=== PATIENT | male | born 1960 | race Two or more races ===

== ENCOUNTER 2025-03-04 05:03 | Emergency (ER) | payer OTHER, SELFPAY ==
--- NOTE | ~2025-03-04 | CT_ITS ---
CLINICAL HISTORY: Left flank pain CT abdomen and pelvis without contrast Comparison: None provided Findings: No consolidation or effusion. There is cholelithiasis. Small calculi are seen within the cystic duct. There is no evidence of cholecystitis. The liver is otherwise unremarkable. There are bilateral perinephric inflammatory changes of indeterminate age. There is a tiny nonobstructing calculus in the midpole of the right kidney and a small cyst is seen in the midpole as well. There is a small nonobstructing calculus in the lower pole of the left kidney. There is mild left hydroureteronephrosis with periureteral inflammatory changes. A 3.5 mm obstructing calculus is seen in the distal left ureter. The rest of the solid organs are unremarkable. No bowel obstruction, pneumoperitoneum, or pneumatosis. There is a small left inguinal hernia containing fat only. No acute fracture. IMPRESSION: 1. Nephrolithiasis with left-sided obstructive uropathy. Obstructing for the 3.5 mm calculus in the distal left ureter. 2. Cholelithiasis with small calculi seen in the cystic duct. 3. Small left inguinal hernia containing fat only. This document has been electronically signed by: Keshav Jensen MD on 03/04/2025 06:56:31
[2025-03-04 05:06] VITALS: BP 154/76; PULSE 65; RESP 20; TEMP 36.6; O2SAT 99; BMI 31.9
[2025-03-04 05:35] LABS: MANUAL DIFF FLAG NO
[2025-03-04 05:38] LABS: Hematocrit 41.8 % (42.0-52.0); Hemoglobin 14.4 g/dl (14.0-18.0); Imm Gran Abs Auto 0.03 X10*3/uL (0.00-0.03); Imm Gran Pct Auto 0.4 % (0.0-0.4); Lymphocytes Absolute Auto 2.0 X10*3/uL (1.2-4.9); Mean Corpuscular HGB Conc 34.4 g/dl (31.0-36.0); Mean Corpuscular Hemoglobin 29.4 pg (27.0-33.0); Mean Corpuscular Volume 85.3 fL (80.0-98.0); NRBC Abs Auto 0.000 X10*3/uL (0.0-0.012); NRBC Pct Auto 0.0 /100WBC (0.0-0.2); Platelet Count 119 X10*3/uL (160-400); Red Blood Count 4.90 X10*6/uL (4.60-5.80); White Blood Count 7.5 X10*3/uL (4.8-10.8)
--- NOTE | 2025-03-04 05:39 | ED_ITS ---
HPI - General Adult General Chief complaint: Back Pain/Injury Stated complaint: severe back pain Time Seen by Provider: 03/04/25 05:39 History of Present Illness ED Provider: Sudarshan CASE narrative: The patient is a 64-year-old male who says that he was awoken by pain in his left flank at around 03:00 this morning. He has been asleep. The pain was very uncomfortable and made him feel very restless so that he walked around a lot. He has never had pain like this before. He has no history of kidney stones. He has been feeling fine yesterday. No fever, sweats, chills. No nausea or vomiting. No urinary symptoms. No diarrhea. No injury. Related Data Previous Rx's ?Medication ?Instructions ?Recorded ibuprofen 400 mg tablet 400 mg PO Q6H PRN pain #14 t abs 03/04/25 ondansetron 4 mg disintegrating 4 mg PO Q6H PRN nausea and 03/04/25 tablet vomiting #10 tabs oxycodone 5 mg tablet 5 mg PO Q6H PRN pain #10 tab s 03/04/25 Allergies Allergy/AdvReac Type Severity Reaction Status Date / Time No Known Allergies Allergy Verified 03/04/25 05:09 Review of Systems 2 Review of Systems: Yes all other systems are reviewed and are negative PMFSH Social History Social History Advance Directives: No Advance Directives Information Provided: Yes Do you have a plan to hurt others: No Plan Physical Exam ED Vital Signs: Vital Signs - 24 hr 03/04/25 05:06 03/04/25 07:19 03/04/25 08:13 Temperature 97.8 F 98.0 F Pulse Rate 65 65 65 Respiratory Rate 20 16 16 Blood Pressure 154/76 H 136/61 136/61 Pulse Oximetry 99 100 100 Oxygen Delivery Method Room Air Nasal Cannula Nasal Cannula BMI result Body Mass Index 31.9 Const Other: The patient is a 64-year-old male who was standing next to the hospital stretcher. He felt this was more comfortable than lying down. He was awake and alert. He was pleasant and cooperative. He looked mildly uncomfortable but not severely so. No signs of respiratory distress. Orientation/consciousness: patient oriented x3 HENMT Other: The face is symmetrical. ?Mucous membranes moist. Eyes Other: Pupils are round equal, conjunctivae are clear, extraocular movements intact Neck Neck: Yes normal visual inspection, Yes full ROM and Yes no JVD Resp Effort & Inspection: normal respiratory effort Auscultation: clear to auscultation bilaterally Cardio Rate: regular rate Rhythm: regular rhythm Heart sounds: S1 normal heart sound present and S2 normal heart sound present GI Other: The abdomen is soft and nontender Back/Spine/Pelvis Other: There is some mild left-sided CVA percussion tenderness Skin Other: Skin is dry and unremarkable Neuro General: patient oriented x3, gait normal, tone normal, moves all extremities, no focal motor deficits and CN's II-XI intact bilaterally Extrem Other: No peripheral edema Medications Administered Discontinued Medications Generic Name Dose Route Start Last Admin Trade Name Freq PRN Reason Stop Dose Admin Sodium Chloride 1,000 mls @ 999 mls/hr 03/04/25 06:00 03/04/25 07:26 Ns IV 03/04/25 07:00 999 mls/hr .Q1H1M [place] Administration Ketorolac Tromethamine 15 mg 03/04/25 05:46 03/04/25 07:26 Ketorolac Tromethamine 15 Mg/Ml Vial IVPUSH 03/04/25 05:47 15 mg ONCE ONE Administration Medical Decision Making Medical Decision Making [facility] Narrative: The patient presented with symptoms suggestive of left ureteral colic. Urinalysis shows blood in his urine. CBC is unremarkable. Metabolic panel is likewise unremarkable. Urinalysis shows no sign of infection in the urine. Noncontrast CT scan of the abdomen and pelvis shows a 3.5 mm stone in the left distal ureter with hydronephrosis. He will also has intrarenal stones bilaterally and some tiny gallstones and a question of tiny choledocholithiasis. He has no right upper quadrant symptoms or tenderness. The patient was treated with ketorolac and IV fluids for his kidney stone. I reviewed the CT findings with him including the incidental findings of the biliary system. The patient will be discharged with a prescriptions for ibuprofen, ondansetron, and oxycodone which he will use to manage the symptoms of his left ureteral stone. He should follow up with Urology. With regard to his tiny gallstones he may follow up with his PCP. He should return if worse. Lab Data 03/04/25 05:31 03/04/25 05:31 Labs: Lab Results 03/04/25 03/04/25 Range/Units 05:31 05:56 WBC 7.5 (4.8-10.8) X10*3/uL RBC 4.90 (4.60-5.80) X10*6/uL Hgb 14.4 (14.0-18.0) g/dl Hct 41.8 L (42.0-52.0) % MCV 85.3 (80.0-98.0) fL MCH 29.4 (27.0-33.0) pg MCHC 34.4 (31.0-36.0) g/dl RDW 13.4 (11.0-16.0) % Plt Count 119 L (160-400) X10*3/uL MPV 11.3 (9.4-12.4) fL Immature Gran % (Auto) 0.4 (0.0-0.4) % Neut % (Auto) 61.0 (45-73) % Lymph % (Auto) 26.4 (20-40) % [place] % (Auto) 8.4 (2-11) % Eos % (Auto) 3.1 (0-4) % Baso % (Auto) 0.7 (0-2) % Lymph # (Auto) 2.0 (1.2-4.9) X10*3/uL [place] # (Auto) 0.6 (0.1-1.2) X10*3/uL Eos # (Auto) 0.2 (0.0-0.4) X10*3/uL Baso # (Auto) 0.1 (0.0-0.2) X10*3/uL Abs Immat Gran (auto) 0.03 (0.00-0.03) X10*3/uL Absolute Neuts (auto) 4.6 (2.0-8.3) x10*3/uL Absolute Nucleated RBC 0.000 (0.0-0.012) X10*3/uL Nucleated RBC % (auto) 0.0 (0.0-0.2) /100WBC Sodium 147 H (135-145) mmol/L Potassium 4.7 (3.3-5.1) mmol/L Chloride 110 H (96-108) mmol/L Carbon Dioxide 28 (22-29) mmol/L Anion Gap 14 (12-20) BUN 24 H (9-16) mg/dL Creatinine 1.03 (0.5-1.4) mg/dL Estim Creat Clear Calc 96.6 Estimated GFR > 60 Random Glucose 156 H (60-115) mg/dL Calcium 9.6 (8.4-10.2) mg/dL Total Bilirubin 0.6 (0.0-1.0) mg/dL AST 16 (5-37) U/L ALT 17 (0-40) U/L Alkaline Phosphatase 97 (39-117) U/L Total Protein 6.6 (6.5-8.0) g/dL Albumin 4.5 (3.5-5.0) g/dL Lipase 11 (8-78) U/L Urine Color Yellow Urine Appearance Clear Urine pH 6.0 (5.0-9.0) Ur Specific [place] >= 1.030 H (1.005-1.025) Urine Protein Trace (Neg-Trace) mg/dL Urine Glucose (UA) Negative (Negative) mg/dL Urine Ketones Negative (Negative) mg/dL Urine Blood Large (3+) H (Negative) Urine Nitrite Negative (Negative) Ur Leukocyte Esterase Negative (Negative) Urine RBC >20 H (0-2) /HPF Urine WBC 0-5 (0-5) /HPF Ur Squamous Epith Cells 0-2 (0-2) /HPF Urine Bacteria None Seen (None Seen) Hyaline Casts 3-5 (0-2) /LPF Discharge Plan Discharge Clinical Impression: Left ureteral calculus, Ureteral colic Patient Disposition: Home, Self-Care Instructions: Ureteral Stones (ED) Additional Instructions: You have a 3.5 mm stone in your left distal ureter. The treatment of this condition is to treat the pain until the stone passes into your bladder. You may take 2 extra-strength acetaminophen (Tylenol) up to 3 times a day as needed for pain. In addition you may take the prescribed ibuprofen every 6 hours as needed. If these medications are not sufficient you may also use the oxycodone prescribed. If you have nausea please use the ondansetron. Drink lot of fluids. My hope is that your symptoms will entirely resolve in the next day or 2. This will mean that the stone has passed into your bladder. Please contact the urology office on Thursday for a follow up appointment. If at any point you are significantly worse please return to the emergency room, especially if you develop a fever or vomiting. Also please be aware that your CAT scan shows that you have additional stones in each of your kidneys and you also have some very tiny gallstones. You may contact your primary care doctor to follow up with all of these results as well. Prescriptions: New ibuprofen 400 mg tablet 400 mg PO Q6H PRN (Reason: pain) Qty: 14 0RF ondansetron 4 mg tablet,disintegrating 4 mg PO Q6H PRN (Reason: nausea and vomiting) Qty: 10 0RF oxycodone 5 mg tablet 5 mg PO Q6H PRN (Reason: pain) Qty: 10 0RF Rx Instructions: Partial Fill upon patient request. Referrals: [facility] [place] [facility] [place] [facility] [Provider Group, Urology] Edna Kinsey MD [Primary Care Provider, Primary Care] Interventions: ED Discharge Assessment Last Done: 03/04/25 08:13 Discharge Date/Time: 03/04/25 08:14 Print Language: Italian
[2025-03-04 05:50] LABS: Alanine Aminotransferase 17 U/L (0-40); Albumin Level 4.5 g/dL (3.5-5.0); Alkaline Phosphatase 97 U/L (39-117); Anion Gap 14 (12-20); Aspartate Amino Transferase 16 U/L (5-37); Blood Urea Nitrogen 24 mg/dL (9-16); Calcium 9.6 mg/dL (8.4-10.2); Carbon Dioxide 28 mmol/L (22-29); Chloride 110 mmol/L (96-108); Creatinine Clr Calc Pharmacy 96.6; Estimated Glomerular Filt Rate > 60; Lipase 11 U/L (8-78); Potassium 4.7 mmol/L (3.3-5.1); Sodium 147 mmol/L (135-145); Total Protein 6.6 g/dL (6.5-8.0)
[2025-03-04 06:01] LABS: Appearance Urine Clear; Glucose Urine UA Negative (Negative); PH 6.0 (5.0-9.0); Specific Gravity - Urine >= 1.030 (1.005-1.025); UMIC TRIGGER UACC YES
--- NOTE | 2025-03-04 07:08 | PC.NURSE ---
Patient alert and oriented. Patient in custody with law enforcement at the bedside. Attempting to initiate care including labwork and medications. Patient denies pain at this time and is refusing ordered testing. Provider notified and into re-evaluate. Patient requesting to be discharged. Respirations even and non-labored. Abdomen soft, non-tender with positive bowel sounds. Positive pedal pulses with no edema.
[2025-03-04 07:19] VITALS: BP 136/61; PULSE 65; RESP 16; O2SAT 100
--- NOTE | 2025-03-04 07:44 | PC.NURSE ---
Patient is a 64-year-old male who says that he was awoken by pain in his left flank at around 03:00 this morning. Patient alert and oriented. Lungs clear bilat. Respirations even and non-labored. Abdomen soft, non-tender with positive bowel sounds. states left flank pain has subsided and tolerable at this time. Positive pedal pulses with no edema. at the bedside.
[2025-03-04 08:13] VITALS: BP 136/61; PULSE 65; RESP 16; TEMP 36.7; O2SAT 100
== END 2025-03-04 08:14 | disposition home or self-care (01) ==
PROVIDERS: Emergency Provider Emergency Medicine; PCP Internal Medicine
DX: N20.1 Calculus of ureter (principal); M54.50 Low back pain, unspecified; R11.0 Nausea; R10.2 Pelvic and perineal pain; Z79.899 Other long term (current) drug therapy
CPT/HCPCS: 36415; 74176; 80053; 81001; 83690; 85025; 96361; 96374; 99284; 99285; J1885

== ENCOUNTER → 2025-03-04 05:49 | Outpatient (BNV) | payer OTHER, SELFPAY | PROVIDERS: Emergency Provider Emergency Medicine; PCP Internal Medicine; Visit Provider Radiology Diagnostic Radiology | DX: N13.2 Hydronephrosis with renal and ureteral calculous obstruction (principal); K80.20 Calculus of gallbladder without cholecystitis without obstruction; K40.90 Unilateral inguinal hernia, without obstruction or gangrene, not specified as recurrent | CPT/HCPCS: 74176 ==